=== PATIENT | male | born 2000 | race African-American/Black ===

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

== ENCOUNTER 2020-12-20 01:36 | Emergency (ER) | payer MEDICAID ==
[~2020-12-20] VITALS: Ht 170.2 cm; Wt 63.5 kg
[2020-12-20 01:51] VITALS: BP 116/63
== END 2020-12-20 04:11 | disposition home or self-care (01) ==
LOC: EDBD 01:36 → ER 01:36 → EDUNIT# 01:36 → ER 04:09
DX: S06.9X1A Unspecified intracranial injury with loss of consciousness of 30 minutes or less, initial encounter (principal); S16.1XXA Strain of muscle, fascia and tendon at neck level, initial encounter; S00.03XA Contusion of scalp, initial encounter; F17.210 Nicotine dependence, cigarettes, uncomplicated; F12.10 Cannabis abuse, uncomplicated; W22.8XXA Striking against or struck by other objects, initial encounter; Y93.89 Activity, other specified; Y92.89 Other specified places as the place of occurrence of the external cause; Y99.8 Other external cause status
CPT/HCPCS: 70450; 72125